=== PATIENT | male | born 2000 | race Hispanic/Latino ===

== ENCOUNTER 2023-03-21 13:39 | Emergency (ER) | payer OTHER, SELFPAY ==
--- NOTE | 2023-03-21 13:50 | ED.GENADULT ---
HPI - General Adult General Chief complaint: Unspecified Stated complaint: headache, back pain, foot pain Time Seen by Provider: 03/21/23 14:00 Source: patient and cadet deck Mode of arrival: ambulatory Limitations: language barrier History of Present Illness HPI narrative: 22-year-old male with history of schizophrenia presents with his dad with complaint of restlessness and generalized pain. Was seen in ER at [facility] last night with same complaint. Was given tramadol. Dad reports patient is still having pain and restlessness. Feels like he needs to stand and walk around, cannot to sit down and rest. Patient takes Haldol And Topamax for his schizophrenia. has appointment with his psychiatrist on Thursday. Dad wants to know what he can do in the meantime for patient's pain. Has tried Tylenol and ibuprofen with no relief. All systems reviewed and negative except as noted above. Related Data Allergies Allergy/AdvReac Type Severity Reaction Status Date / Time No Known Allergies Allergy Verified 03/21/23 13:50 Review of Systems Review of Systems: CONSTITUTIONAL: Denies fever, chills, or sweats. EYES: Denies visual changes, redness, or discharge. ENT: Denies rhinorrhea, congestion, sore throat, or otalgia. CARDIOVASCULAR: Denies chest pain, palpitations, or edema. RESPIRATORY: Denies cough or dyspnea. GASTROINTESTINAL: Denies abdominal pain, nausea, vomiting, or diarrhea. GENITOURINARY: Denies dysuria or hematuria. SKIN: Denies rash or itching. MUSCULOSKELETAL: reports Generalized pain NEUROLOGIC: Denies headache, numbness, or weakness. PSYCHIATRIC: Denies anxiety or depression. Reports restlessness, agitation. All other systems reviewed are negative, except as documented in HPI. PMFSH Comments At time of signature, agree with nursing past medical, surgical, social and family history. There is no relevant family history pertinent to the presenting complaint. Exam Narrative: GENERAL: This is a well-nourished, well-developed patient, in no apparent distress. HEAD: normocephalic, atraumatic. EYES: PERRL. Sclera clear/white. Vision is grossly intact. EARS: External ears normal NOSE: External nose normal NECK: Neck supple, non-tender without lymphadenopathy, masses or thyromegaly. CARDIOVASCULAR: Regular rate and rhythm without murmurs, gallops, or rubs. RESPIRATORY: Clear to auscultation. Breath sounds equal bilaterally. No wheezes, rales, or rhonchi. GASTROINTESTINAL: Abdomen soft, non-tender, nondistended. Bowel sounds are active. No hepato-splenomegaly, or palpable masses. No guarding. SKIN: warm, Dry, intact with no suspicious lesions or rash, good texture and turgor. NEURO: flat affect. oriented to person and place. pt sitting down and standing up, walking around room throughout exam. EXTREMITIES: No joint tenderness, effusion, or edema noted. Course Course Level of Care: Express Care Visit Vital Signs Vital signs: Vital Signs Temperature 36.6 C 03/21/23 13:55 Pulse Rate 81 03/21/23 13:55 Respiratory Rate 12 03/21/23 13:55 Blood Pressure 140/83 03/21/23 13:55 Pulse Oximetry 100 03/21/23 13:55 Oxygen Delivery Room Air 03/21/23 13:55 Temperature 36.6 C 03/21/23 13:55 Pulse Rate 81 03/21/23 13:55 Respiratory Rate 12 03/21/23 13:55 Blood Pressure 140/83 03/21/23 13:55 Pulse Oximetry 100 03/21/23 13:55 Oxygen Delivery Room Air 03/21/23 13:55 reviewed Medical Decision Making MDM Narrative Medical decision making narrative: Patient's pain complaint is a possible side effect from psychiatric medication. recommend he follow-up at scheduled appointment with his psychiatrist to further discuss this problem. Did offer to transfer patient to ER for further evaluation of his pain. Explained to Father that we cannot prescribe narcotic pain medication and only recommend ibuprofen or Tylenol for his complaint Due to it possibly being a side ef
[2023-03-21 13:55] VITALS: BP 140/83; PULSE 81; RESP 12; TEMP 36.6; O2SAT 100
== END 2023-03-21 14:25 | disposition home or self-care (01) ==
PROVIDERS: Emergency Provider Nurse Practitioner Family; PCP Registered Nurse
DX: R45.1 Restlessness and agitation (principal); F20.9 Schizophrenia, unspecified
CPT/HCPCS: 99211; G0463